=== PATIENT | female | born 1970 | race Two or more races ===

== ENCOUNTER 2023-11-14 10:54 | Emergency (ER) | payer OTHER ==
[~2023-11-14] VITALS: Ht 172.7 cm; Wt 90.9 kg
[2023-11-14 11:47] VITALS: TEMP 98.6; O2SAT 98
[2023-11-14] MEDS ORDERED: HYDROmorphone HCL 2 MG/ML VL/or syr IV ONE (12:45)
[2023-11-14] MEDS ORDERED: AMPICILLIN & SULBACTAM SODIUM 3 GM in SODIUM CHL 0.9% 100 ML IV ONE (12:45)
[2023-11-14] MEDS ORDERED: TETANUS-DIPTH-ACEL PERTUSSIS 0.5ML SYR Tdap IM ONE (12:45)
[2023-11-14 13:46] VITALS: BP 146/64; PULSE 83; RESP 18
[2023-11-14] MEDS ORDERED: LIDOCAINE 1% HCL (LOCAL ANESTH.) INJ 20ML MDV ID ONE (14:00)
[2023-11-14] MEDS ORDERED: HYDROcodone-ACET 10/325MG TAB PO ONE (15:15)
[2023-11-14] MEDS ORDERED: AUG875T PO (16:54)
[2023-11-14] MEDS ORDERED: ACET500T58 PO (16:54)
[2023-11-14] MEDS ORDERED: TRAM50TA2 PO (16:54)
== END 2023-11-14 17:47 | disposition home or self-care (01) ==
LOC: EDBD 10:54 → ER 10:54
DX: S61.210A Laceration without foreign body of right index finger without damage to nail, initial encounter (principal); S61.011A Laceration without foreign body of right thumb without damage to nail, initial encounter; S61.511A Laceration without foreign body of right wrist, initial encounter; S61.012A Laceration without foreign body of left thumb without damage to nail, initial encounter; S61.211A Laceration without foreign body of left index finger without damage to nail, initial encounter; W54.0XXA Bitten by dog, initial encounter; Y93.89 Activity, other specified; Y92.89 Other specified places as the place of occurrence of the external cause; Y99.8 Other external cause status
CPT/HCPCS: 12005; 73130; 90471; 90715; 96374; 99284; J1170; J2001